=== PATIENT | male | born 1995 | race Two or more races ===

== ENCOUNTER 2018-04-07 13:35 | Emergency (ER) | payer OTHER ==
[~2018-04-07] VITALS: Ht 170.2 cm; Wt 70.3 kg
--- NOTE | 2018-04-07 13:42 | NUR ---
[facility] FROM [facility] DT RIGHT HAND LACERATION, PT NOT IN DISTRESS. NOTED LAC WITH MINIMAL BLEEDING. AFEBRILE.
--- NOTE | 2018-04-07 14:26 | NUR ---
SEEN BY MD HUANG
[2018-04-07] MEDS ORDERED: CEPHALEXIN MONOHYDRATE 500 MG CAPSULE PO ONE ×2 (14:27→14:30)
[2018-04-07] MEDS ORDERED: ACETAMINOPHEN ES 500 MG TABLET ONE (14:27)
[2018-04-07] MEDS ORDERED: SULFAMETH/TRIMETH 800/160 MG 1 UDTAB TABLET PO ONE ×2 (14:28→14:30)
[2018-04-07] MEDS ORDERED: TDAP [DIPH/PERTUSSIS/TET] 0.5 ML VIAL IM ONE ×2 (14:28→14:30)
[2018-04-07] MEDS ORDERED: IBUPROFEN 600 MG TABLET PO ONE ×2 (14:28→14:30)
[2018-04-07] MEDS ORDERED: ACETAMINOPHEN ES 500 MG TABLET PO ONE (14:30)
[2018-04-07 14:49] VITALS: BP 130/68
--- NOTE | 2018-04-07 14:49 | NUR ---
Patient discharged UNDER CUSTODY in stable condition. Written and verbal after care instructions given. Patient verbalizes understanding of instruction.
== END 2018-04-07 14:50 ==
LOC: ER 13:38
DX: S61.411A Laceration without foreign body of right hand, initial encounter (principal); F17.200 Nicotine dependence, unspecified, uncomplicated; W45.8XXA Other foreign body or object entering through skin, initial encounter; Y93.39 Activity, other involving climbing, rappelling and jumping off; Y92.89 Other specified places as the place of occurrence of the external cause; Y99.8 Other external cause status
CPT/HCPCS: 90715; A4606; A6403; Z7610